=== PATIENT | male | born 1995 | race Caucasian/White ===

== ENCOUNTER 2017-06-26 14:00 | Emergency (ER) | payer OTHER ==
[~2017-06-26] VITALS: Ht 175.3 cm; Wt 90.9 kg
[2017-06-26] MEDS ORDERED: IBUP-1114 PO (14:10)
[2017-06-26] MEDS ORDERED: TYLETAB14 PO (16:21)
[2017-06-26] MEDS ORDERED: AMOX500C PO (16:21)
[2017-06-26 16:30] VITALS: BP 153/91
== END 2017-06-26 16:31 | disposition home or self-care (01) ==
LOC: M ED 14:00
DX: G50.1 Atypical facial pain (principal); F17.200 Nicotine dependence, unspecified, uncomplicated